=== PATIENT | male | born 1945 | race Caucasian/White ===

== ENCOUNTER → 2018-05-11 | Emergency (ER) | payer OTHER ==
[~2018-05-11] VITALS: Ht 167.6 cm; Wt 74.8 kg
== END | disposition designated cancer center or children's hospital (05) ==
LOC: ER 18:38 → CPU-OBS 18:39
DX: I20.0 Unstable angina (principal); I16.0 Hypertensive urgency; I10 Essential (primary) hypertension; R07.89 Other chest pain